=== PATIENT | male | born 1975 | race Two or more races ===

== ENCOUNTER 2016-12-18 07:08 | Emergency (ER) | payer SELFPAY ==
[2016-12-18] MEDS ORDERED: ONDANSETRON HCL INJ/PF 4 MG/2 ML SDV ONE ×2 (07:15→08:00)
[2016-12-18] MEDS ORDERED: LABETALOL HCL INJ 20 MG/4 ML DISP.SYRIN IV ONE ×4 (07:29→08:00)
--- NOTE | 2016-12-18 07:43 | ER Document Report ---
ED General - General Mode of Arrival: Wheelchair Information source: Relative - spouse via phone call, Friend - co-worker Cannot obtain history due to: Altered mental status - HPI Onset: Just prior to arrival Associated symptoms: Other - see above <MARY JANE MAYORGA - Last Filed: 12/18/16 08:31> <VICKY ABBASI - Last Filed: 12/18/16 09:34> - General Stated Complaint: SUGAR CONCERN Time Seen by Provider: 12/18/16 07:35 Notes: Patient is a 41 year old male who presents to the ED by his coworker who pulled up in the ambulance bay, patient was assisted into a wheelchair by EMS and nursing staff and brought into the ED. Per patients coworker, they were at the [facility] gate when the patient suddenly coughed, became "wide eyed" and said "We need to go to the hospital now". Patients coworker states while on the way to the to the ED the patient was reaching and grabbing around and by the time they arrived to the hospital the patient was dry heaving out the window. Patient is in the area from [place] for work. We were able to contact the patients who states the patient has a history of diabetes and hypertension. POC was done and was 216. Patients coworker states he has not used his insulin that he is aware of since August, he checks his sugar levels and "they are normal". Patient nodded his head "No" when asked if hewas having any pain. His last known well time was at approximately 0645 this morning. (MARY JANE MAYORGA) At 8:50 AM the patient is much more alert and is able to speak sentences clearly. His stroke scale is 7 now. He is able to lift and use both upper extremities, he can barely get the left lower extremity off the table, he can pick the right lower extremity a few inches off the table. Visual donnelly are intact. He does give a history of a left visual field deficit last night about 6:30 PM. He reports he noticed that he had trouble seeing the TV on the left side of his visual field. This lasted for approximately 30 minutes. At one point he put his glasses on which she only recently began wearing and several minutes later the vision cleared up. He took a nap after that. CT scan was unremarkable. MRI of the brain showed an acute right cerebellar infarct with a tiny occipital infarct. His blood pressure came down to 157/90 after the third 10 mg labetalol dose. In consultation with the neurology department at [facility], TPA was started and they are sending a helicopter for the patient. I reviewed the risks benefits with the patient directly and he seems to understand, and explained this to the patient's and daughter over the telephone. There still in [place] and planning to leave in the next hour to drive up to [place]. (VICKY ABBASI) - Related Data Allergies/Adverse Reactions: No Known Allergies Allergy (Verified 12/18/16 07:43) Home Medications: Current Home Medications Albuterol Sulfate [Ventolin HFA MDI 18 GM] 1 puff IH Q4H PRN 12/18/16 [History] Gabapentin 300 mg PO BID 12/18/16 [History] Gabapentin [Neurontin 100 mg Capsule] 100 mg PO DAILY 12/18/16 [History] Ipratropium/Albuterol Sulfate [Duoneb 3 ml Ampul] 3 ml NEB Q4H PRN 12/18/16 [ History] Metformin HCl [Metformin HCl ER] 1,000 mg PO BID 12/18/16 [History] Montelukast Sodium [Singulair 10 mg Tablet] 10 mg PO QHS 12/18/16 [History] Past Medical History - General Information source: Relative - via phone call, Friend - coworker - Social History Smoking Status: Current Every Day Smoker - 1 pack a day Frequency of alcohol use: Occasional Family History: Reviewed & Not Pertinent - Past Medical History Cardiac Medical History: Reports: Hx Hypertension Pulmonary Medical History: Reports: Hx Asthma Endocrine Medical History: Reports: Hx Diabetes Mellitus Type 2 <MARY JANE MAYORGA - Last Filed: 12/18/16 08:31> Review of Systems - Review of Systems -: Yes ROS unobtainable due to patient's medical condition <MARY JANE MAYORGA - Last Filed: 12/18/16 08:31> Physical Exam - General General appearance: Other - confused, expressive aphasia, seems to understand but can not verbalize his answer, moves head to shake his head "yes" or "no" - HEENT Head: Normocephalic Eyes: Normal - Respiratory Respiratory status: No respiratory distress, Other - hyperventilating Breath sounds: Normal - Cardiovascular Rhythm: Regular Heart sounds: Normal auscultation Murmur: No - Abdominal Inspection: Normal Tenderness: Nontender - Back Back: Normal - Extremities General upper extremity: Normal ROM General lower extremity: Normal ROM, Other - hyper reflexic - Neurological Cognition: Confused, Other - understand but cant verbalize answer, moves head to shake head "yes" or "no" Speech: Expressive aphasia - Psychological Associated symptoms: Confused - Skin Skin Temperature: Warm Skin Moisture: Diaphoretic <MARY JANE MAYORGA - Last Filed: 12/18/16 08:31> <VICKY ABBASI - Last Filed: 12/18/16 09:34> - Vital signs Vitals: Pulse Resp BP Pulse Ox 86 18 202/116 H 96 12/18/16 07:20 12/18/16 07:20 12/18/16 07:20 12/18/16 07:20 Course - Laboratory Result Diagrams: 12/18/16 07:10 12/18/16 07:10 - Consults Transfer Line Time consulted: 08:18 Dr. Bedolla Time consulted: 08:31 <TIERRAMARY JANE - Last Filed: 12/18/16 08:31> - Laboratory Result Diagrams: 12/18/16 07:10 12/18/16 07:10 - Diagnostic Test Radiology reviewed: Image reviewed, Reports reviewed - CT scan is unremarkable. MRI shows acute right cerebellar infarct with tiny right occipital infarct. - EKG Interpretation by Me EKG shows normal: Sinus rhythm, Anthony, Intervals, QRS Complexes, ST-T Waves Rate: Normal - 95 Rhythm: NSR Anthony/QRS: LAHB/LAFB When compared to previous EKG there are: Previous EKG unavailable <VICKY ABBASI - Last Filed: 12/18/16 09:34> - Vital Signs Vital signs: Temp Pulse Resp BP Pulse Ox 98.0 F 68 22 H 162/95 H 98 12/18/16 09:28 12/18/16 09:20 12/18/16 09:28 12/18/16 09:28 12/18/16 09:28 - Laboratory Laboratory results interpreted by ut: 12/18/16 12/18/16 12/18/16 07:10 07:10 07:10 WBC 13.4 H Absolute Lymphocytes 5.0 H PT 11.3 L Carbon Dioxide 21 L Glucose 226 H Direct Bilirubin 0.5 H Urine Protein Urine Glucose (UA) Urine Ketones 12/18/16 08:20 WBC Absolute Lymphocytes PT Carbon Dioxide Glucose Direct Bilirubin Urine Protein 30 H Urine Glucose (UA) >=500 H Urine Ketones TRACE H - Consults Transfer Line Reason for consultation: 12/18/16 08:18 Discussed patient, will wait for a call back from neurology. (MARY JANE MAYORGA) Dr. Bedolla Reason for consultation: 12/18/16 08:31 Discussed patient. He said to give TPA and they will send a helicopter. Patient is accepted for transfer and admission to Dr. Kearney. (MARY JANE MAYORGA) Critical Care Note - Critical Care Note Total time excluding time spent on procedures (mins): 65 <VICKY ABBASI - Last Filed: 12/18/16 09:34> Discharge <MARY JANE MAYORGA - Last Filed: 12/18/16 08:31> <VICKY ABBASI - Last Filed: 12/18/16 09:34> - Discharge Clinical Impression: Acute CVA (cerebrovascular accident) High blood pressure Qualifiers: Hypertension type: essential hypertension Qualified Code(s): I10 - Essential ( primary) hypertension Diabetes Qualifiers: Diabetes mellitus type: type 2 Diabetes mellitus complication status: with unspecified complications Diabetes mellitus senior care insulin use: unspecified senior care insulin use status Qualified Code(s): E11.8 - Type 2 diabetes mellitus with unspecified complications Condition: Critical Disposition: [facility] Scribe Attestation: 12/18/16 09:24 I personally performed the services described in the documentation, reviewed and edited the documentation which was dictated to the scribe in my presence, and it accurately records my words and actions. (VICKY ABBASI) Scribe Documentation - Scribe Written by Rene:: rene Edwards, 12/18/2016, 816 acting as scribe for :: Nani <MARY JANE MAYORGA - Last Filed: 12/18/16 08:31>
[2016-12-18 07:50] LABS: ABSOLUTE BASOPHILS # (AUTO) 0.1 10^3/uL (0.0-0.2); ABSOLUTE EOSINOPHILS # (AUTO) 0.5 10^3/uL (0.0-0.6); ABSOLUTE MONOCYTES (AUTO) 1.2 10^3/uL (0.1-1.4); ABSOLUTE NEUT (AUTO) 6.6 10^3/uL (1.7-8.2); BASOPHILS % (AUTO) 0.7 % (0-2); EOSINOPHILS % (AUTO) 3.4 % (0-6); HEMATOCRIT 47.5 % (37.9-51.0); HEMOGLOBIN 16.2 g/dL (13.5-17.0); HGB HCT DIFFERENCE 1.1; LYMPHOCYTES % (AUTO) 37.1 % (13-45); MEAN CORPUSCULAR HEMOGLOBIN 31.5 pg (27.0-33.4); MEAN CORPUSCULAR HGB CONC 34.2 g/dL (32.0-36.0); MEAN CORPUSCULAR VOLUME 92 fl (80-97); MONOCYTES % (AUTO) 9.2 % (3-13); RED BLOOD COUNT 5.15 10^6/uL (4.35-5.55); RED CELL DISTRIBUTION WIDTH 12.9 % (11.5-14.0); SEGMENTED NEUTROPHILS % (AUTO) 49.6 % (42-78); WHITE BLOOD COUNT 13.4 10^3/uL (4.0-10.5)
--- NOTE | 2016-12-18 07:50 | RADIOLOGY REPORT (SQ) ---
EXAM DESCRIPTION: CT HEAD WITHOUT COMPLETED DATE/TIME: 12/18/2016 7:36 am REASON FOR STUDY: STROKE ALERT COMPARISON: None. TECHNIQUE: Axial images acquired through the brain without intravenous contrast. Images reviewed wi th bone, brain and subdural windows. Images stored on PACS. All CT scanners at this facility use dose modulation, iterative reconstruction, and/or weight based d osing when appropriate to reduce radiation dose to as low as reasonably achievable (ALARA). [facility]: Dose Right [facility]: CareDose [facility]: Dose Right [facility]: Teradose 4D [facility]: Smart TruHearing RADIATION DOSE: mGy. LIMITATIONS: None. FINDINGS: VENTRICLES: Normal size and contour. CEREBRUM: No masses. No hemorrhage. No midline shift. Normal pickard/white matter differentiation. N o evidence for acute infarction. CEREBELLUM: No masses. No hemorrhage. No alteration of density. No evidence for acute infarction. EXTRAAXIAL SPACES: No fluid collections. No masses. ORBITS AND GLOBE: No intra- or extraconal masses. Normal contour of globe without masses. CALVARIUM: No fracture. PARANASAL SINUSES: No fluid or mucosal thickening. SOFT TISSUES: No mass or hematoma. OTHER: No other significant finding. IMPRESSION: NORMAL BRAIN CT WITHOUT CONTRAST. COMMENT: This report was called to VICKY ABBASI MD at07:40 on 12/18/2016. TECHNICAL DOCUMENTATION: JOB ID: [id number] Quality ID # [id number]: Final reports with documentation of one or more dose reduction techniques (e.g., Au tomated exposure control, adjustment of the mA and/or kV according to patient size, use of iterative reconstruction technique) 2010 [employer]- All Rights Reserved
[2016-12-18 07:51] LABS: PARTIAL THROMBOPLASTIN TIME 26.1 SEC (23.5-35.8)
--- NOTE | 2016-12-18 07:51 | RADIOLOGY REPORT (SQ) ---
EXAM DESCRIPTION: CHEST SINGLE VIEW COMPLETED DATE/TIME: 12/18/2016 7:41 am REASON FOR STUDY: t2 stroke alert COMPARISON: None. EXAM PARAMETERS: NUMBER OF VIEWS: One view. TECHNIQUE: Single frontal radiographic view of the chest acquired. RADIATION DOSE: NA LIMITATIONS: None. FINDINGS: LUNGS AND PLEURA: No opacities, masses or pneumothorax. No pleural effusion. Moderate-sma ll lung volume. Pulmonary vascular congestion. MEDIASTINUM AND HILAR STRUCTURES: No masses. Contour normal. HEART AND VASCULAR STRUCTURES: Moderate enlarged appearance of the cardiac silhouette. BONES: No acute findings. HARDWARE: None in the chest. OTHER: No other significant finding. IMPRESSION: Moderate enlargement of the cardiac silhouette. Pulmonary vascular congestion. Low heidi g volume. TECHNICAL DOCUMENTATION: JOB ID: [id number]
[2016-12-18 07:53] LABS: PROTHROMBIN TIME 11.3 SEC (11.4-15.4)
[2016-12-18] MEDS ORDERED: ONDANSETRON HCL INJ/PF 4 MG/2 ML SDV IV ONE (07:58)
[2016-12-18 08:05] LABS: ALANINE AMINOTRANSFERASE 38 U/L (21-72); ALBUMIN 4.6 g/dL (3.5-5.0); ALKALINE PHOSPHATASE 71 U/L (38-126); ANION GAP 16 (5-19); ASPARTATE AMINO TRANSFERASE 26 U/L (17-59); BILIRUBIN,DIRECT 0.5 mg/dL (0.0-0.4); BILIRUBIN,TOTAL 1.2 mg/dL (0.2-1.3); BLOOD UREA NITROGEN 10 mg/dL (7-20); CALCIUM 10.2 mg/dL (8.4-10.2); CARBON DIOXIDE 21 mmol/L (22-30); CHLORIDE 103 mmol/L (98-107); CREATINE KINASE 102 U/L (55-170); GLUCOSE 226 mg/dL (75-110); POTASSIUM 4.2 mmol/L (3.6-5.0); TOTAL PROTEIN 7.9 g/dL (6.3-8.2)
--- NOTE | 2016-12-18 08:15 | EKG REPORT ---
SEVERITY:- ABNORMAL ECG - SINUS RHYTHM LEFT ANTERIOR FASCICULAR BLOCK CONSIDER ANTERIOR INFARCT : Confirmed by: Timur Jimenez MD 18-Dec-2016 08:14:50
[2016-12-18 08:17] LABS: CREATINE KINASE MB 1.05 ng/mL (<4.55)
[2016-12-18 08:23] LABS: TROPONIN I < 0.012 ng/mL
[2016-12-18] MEDS ORDERED: ALTEPLASE INJ 100 MG VIAL ONE (08:39)
--- NOTE | 2016-12-18 09:01 | RADIOLOGY REPORT (SQ) ---
EXAM DESCRIPTION: MRI HEAD WITHOUT COMPLETED DATE/TIME: 12/18/2016 8:26 am REASON FOR STUDY: acute aphasia, N V, BP 220 syst COMPARISON: 12/18/2016 CT brain TECHNIQUE: Multiplanar imaging includes non-contrasted T1, T2, FLAIR, and diffusion with ADC map seq uences. Images stored on PACS. LIMITATIONS: None. FINDINGS: ANATOMY: No developmental anomalies. Normal vascular flow voids. Pituitary fossa normal. CSF SPACES: Normal in size and contour. No hemorrhage. CEREBRUM: Diffusion images are positive for a tiny focus of acute ischemic change in the inferior rig ht occipital lobe white matter. Cerebral hemispheres are otherwise unremarkable aside from mild study manager sahra appearing bifrontal and biparietal minimal white matter disease. No large territory acute ischem ic change, acute intracranial hemorrhage, mass effect, or shift. POSTERIOR FOSSA: Diffusion-weighted images are positive for a small nonhemorrhagic acute infarct in t he posteromedial right cerebellar hemisphere and tiny left punctate lacunar acute infarct in the late ral right cerebellar hemisphere. No local mass effect or shift. No posterior fossa hemorrhage DIFFUSION IMAGING: Positive as above ORBITS: No masses. Globes normal. PARANASAL SINUSES: No fluid levels. Mucosa normal. OTHER: This report was discussed with Dr. Cardoza in the emergency room 0815 hours, 12/18/2016 IMPRESSION: Acute nonhemorrhagic infarcts in the right cerebellar hemisphere and inferior right occi pital lobe EVIDENCE OF ACUTE STROKE: Yes COMMENT: Results discussed with Dr. Cardoza in the emergency room 0815 hours 12/18/2016 TECHNICAL DOCUMENTATION: JOB ID: [id number] [employer]- All Rights Reserved
[2016-12-18] MEDS ORDERED: ALTEPLASE INJ 100 MG VIAL IV ONE (09:16)
[2016-12-18 09:27] LABS: APPEARANCE,URINE SLIGHTLY-CLOUDY; BILIRUBIN,URINE NEGATIVE (NEGATIVE); GLUCOSE, URINE >=500 mg/dL (NEGATIVE); KETONES,URINE TRACE mg/dL (NEGATIVE); LEUKOCYTE ESTERASE,URINE NEGATIVE (NEGATIVE); NITRITE,URINE NEGATIVE (NEGATIVE); PROTEIN,URINE 30 mg/dL (NEGATIVE); URINE SPECIFIC GRAVITY 1.029; UROBILINOGEN,URINE NEGATIVE mg/dL (<2.0)
[2016-12-18 09:32] VITALS: BP 162/95
[2016-12-18 09:45] LABS: URINE BARBITURATES SCREEN NEGATIVE; URINE METHADONE SCREEN NEGATIVE; URINE OPIATES LOW NEGATIVE; URINE PHENCYCLIDINE SCREEN NEGATIVE
== END 2016-12-18 09:57 | disposition short-term general hospital (02) ==
LOC: ER 07:08
DX: I63.9 Cerebral infarction, unspecified (principal); R47.01 Aphasia; R41.0 Disorientation, unspecified; I10 Essential (primary) hypertension; I44.4 Left anterior fascicular block; E11.8 Type 2 diabetes mellitus with unspecified complications; F17.200 Nicotine dependence, unspecified, uncomplicated; J45.909 Unspecified asthma, uncomplicated; R61 Generalized hyperhidrosis
CPT/HCPCS: 93005; 96376; 99291; 96375; 96365; 36415; 82553; 82550; 85025; 85610; 85730; 80053; 81001; 84484; 80307; 70551; 71010; 70450; 93010; J3490; J2997; J2405; 82962